=== PATIENT | female | born 1980 | race African-American/Black ===

== ENCOUNTER 2022-05-16 00:37 | Emergency (ER) | payer MEDICAID, MEDICARE ==
[~2022-05-16] VITALS: Ht 167.6 cm; Wt 63.0 kg
[2022-05-16] MEDS ORDERED: METOCLOPRAMIDE HCL 5MG/ml INJ 2ml VIAL IM ONE (03:15)
[2022-05-16] MEDS ORDERED: MORPHINE SULFATE 4 MG/ML SYR/VIAL IM ONE (03:15)
[2022-05-16] MEDS ORDERED: diphenhdrAMINE HCL 50 MG/1 ML VL IM ONE (03:15)
[2022-05-16] MEDS ORDERED: ONDANSETRON ODT 4 MG TAB PO ONE ×2 (03:15→05:30)
[2022-05-16 03:46] LABS: Urine Bacteria NONE SEEN /hpf (None Seen); Urine Blood 3+ /uL (Negative); Urine Mucus FEW (None Seen); Urine Specific Gravity 1.018 (1.001-1.035); Urine WBC 4 /hpf (0 - 5)
[2022-05-16 03:50] LABS: Basophils # (auto) 0.1 10 ^3/uL (0-0.2); Eosinophils # (auto) 0 10 ^3/uL (0-0.8); Eosinophils % (auto) 0.1 % (0.0-7.0); Monocytes # (auto) 0.5 10 ^3/uL (0-1.3); Red Blood Cells 4.72 10^6/uL (4.0-5.20)
[2022-05-16 03:51] LABS: Basophils % (auto) 0.8 % (0.0-2.0); Hematocrit 29.5 % (36.0-46.0); Hemoglobin 9.1 g/dL (12.2-16.2); Mean Corpuscular Hemoglobin 19.2 pg (28.0-32.0); Mean Corpuscular Hgb Conc. 30.7 g/dL (32.0-36.0); Mean Corpuscular Volume 62.4 fL (80.0-100.0); Monocytes % (auto) 3.6 % (0.0-12.0); Neutrophils # (auto) 11.3 10 ^3/uL (1.6-8.6); Neutrophils % (auto) 87.5 % (37.0-80.0); White Blood Cell 12.9 10^3/uL (4.4-10.8)
[2022-05-16 03:55] LABS: Red Cell Distribution Width 20.9 % (11.8-14.3)
[2022-05-16 04:07] LABS: Calcium 8.9 mg/dL (8.5-10.1); Potassium 3.2 mmol/L (3.5-5.1)
[2022-05-16 04:10] LABS: BUN/Creatinine Ratio 16.7; Bilirubin, Total 0.6 mg/dL (0.2-1.0); Total Protein 8.4 g/dL (6.4-8.2)
[2022-05-16] MEDS ORDERED: cefTRIAXone W LIDOCAINE 1 GM IM IM ONE (05:30)
[2022-05-16] MEDS ORDERED: POTASSIUM EFFERVESENT TAB 25 MEQ GT ONE (05:30)
[2022-05-16] MEDS ORDERED: cefTRIAXone SOD 1,000 MG VL IM ONE (06:00)
[2022-05-16] MEDS ORDERED: LIDOCAINE 2%HCL (LOCAL ANESTH.) INJ 10ml MDV IJ ONE (06:00)
[2022-05-16 06:01] VITALS: BP 154/97
[2022-05-16] MEDS ORDERED: METO5TAB67 PO ×2 (07:13)
[2022-05-16] MEDS ORDERED: ONDA-144 PO ×2 (07:13)
[2022-05-16] MEDS ORDERED: CEPH-322 PO ×2 (07:13)
== END 2022-05-16 07:29 | disposition home or self-care (01) ==
LOC: ER 00:37
DX: N39.0 Urinary tract infection, site not specified (principal); R11.2 Nausea with vomiting, unspecified; Z90.49 Acquired absence of other specified parts of digestive tract; Z79.899 Other long term (current) drug therapy; Z88.5 Allergy status to narcotic agent; Z88.8 Allergy status to other drugs, medicaments and biological substances
CPT/HCPCS: 36415; 80053; 81001; 81025; 83690; 85025; 96372; 99284; J0696; J1200; J2270; J2765; Q0162

== ENCOUNTER 2022-05-17 16:22 | Inpatient (IN) | payer MEDICAID ==
[~2022-05-17] VITALS: Ht 167.6 cm; Wt 66.6 kg
[~2022-05-17 16:22] MED LIST: CEPH-322 PO; METO5TAB67 PO; ONDA-144 PO
[2022-05-17] MEDS ORDERED: SODIUM CHLORIDE 0.9% 1,000 ML IV ONE ×3 (17:00→19:00)
[2022-05-17 17:06] LABS: Basophils # (auto) 0.1 10 ^3/uL (0-0.2); Basophils % (auto) 0.7 % (0.0-2.0); Eosinophils # (auto) 0 10 ^3/uL (0-0.8); Monocytes # (auto) 0.5 10 ^3/uL (0-1.3); Neutrophils % (auto) 82.6 % (37.0-80.0)
[2022-05-17 17:08] LABS: Eosinophils % (auto) 0.2 % (0.0-7.0); Hematocrit 34.6 % (36.0-46.0); Hemoglobin 10.8 g/dL (12.2-16.2); Lymphocytes # (auto) 1.5 10 ^3/uL (0.4-5.4); Lymphocytes % (auto) 12.2 % (10.0-50.0); Mean Corpuscular Hemoglobin 19.1 pg (28.0-32.0); Mean Corpuscular Hgb Conc. 31.2 g/dL (32.0-36.0); Mean Corpuscular Volume 61.3 fL (80.0-100.0); Monocytes % (auto) 4.3 % (0.0-12.0); Neutrophils # (auto) 10.4 10 ^3/uL (1.6-8.6); Nucleated Red Blood Cells % 0.1 %; Red Blood Cells 5.64 10^6/uL (4.0-5.20); White Blood Cell 12.6 10^3/uL (4.4-10.8)
[2022-05-17 17:15] LABS: Red Cell Distribution Width 20.5 % (11.8-14.3)
[2022-05-17 17:36] LABS: Albumin 4.2 g/dL (3.4-5.0); BUN/Creatinine Ratio 11.9; Calcium 9.3 mg/dL (8.5-10.1); Potassium 3.5 mmol/L (3.5-5.1)
[2022-05-17 17:39] LABS: Bilirubin, Total 0.9 mg/dL (0.2-1.0); Total Protein 8.6 g/dL (6.4-8.2)
[2022-05-17 18:56] LABS: Urine Bacteria NONE SEEN /hpf (None Seen); Urine Blood 3+ /uL (Negative); Urine Mucus FEW (None Seen); Urine Specific Gravity 1.017 (1.001-1.035); Urine WBC 4 /hpf (0 - 5)
[2022-05-18] MEDS ORDERED: ACETAMINOPHEN 325 MG TAB PO PRN ×2 (00:30→13:30)
[2022-05-18] MEDS ORDERED: D5W/SOD CHL 0.45% 1,000 ML IV SCH (00:30)
[2022-05-18] MEDS ORDERED: cefTRIAXone 1GM/50ML D5W 50 ML IV ONE (02:45)
[2022-05-18] MEDS ORDERED: NITROGLYCERIN 0.4 MG SL TAB SL PRN (03:30)
[2022-05-18] MEDS: ONDANSETRON HCL 4 MG/2 ML VIAL IV PRN ×2 (04:14→14:04)
[2022-05-18] MEDS: IBUPROFEN 600 MG TAB PO PRN ×2 (04:15→19:30)
[2022-05-18] MEDS: hydrALAZINE HCL 20 MG/ML VL IV PRN ×3 (04:15→20:30)
[2022-05-18] MEDS: D5W/SOD CHL 0.45% 1,000 ML IV SCH ×2 (04:44→09:34)
[2022-05-18 08:43] VITALS: BP 128/64
[2022-05-18] MEDS: FAMOTIDINE (10MG/ML) 2ML VL IV SCH ×2 (09:35→21:52)
[2022-05-18 09:44] LABS: Eosinophils # (auto) 0 10 ^3/uL (0-0.8); Eosinophils % (auto) 0.3 % (0.0-7.0); Nucleated Red Blood Cells % 0.1 %
[2022-05-18 09:46] LABS: Basophils # (auto) 0.1 10 ^3/uL (0-0.2); Basophils % (auto) 0.7 % (0.0-2.0); Hematocrit 32.9 % (36.0-46.0); Lymphocytes # (auto) 1.7 10 ^3/uL (0.4-5.4); Mean Corpuscular Hemoglobin 19.1 pg (28.0-32.0); Mean Corpuscular Hgb Conc. 30.5 g/dL (32.0-36.0); Mean Corpuscular Volume 62.7 fL (80.0-100.0); Monocytes # (auto) 0.6 10 ^3/uL (0-1.3); Monocytes % (auto) 4.9 % (0.0-12.0); Neutrophils # (auto) 9.7 10 ^3/uL (1.6-8.6); Neutrophils % (auto) 80.1 % (37.0-80.0); Red Blood Cells 5.25 10^6/uL (4.0-5.20); White Blood Cell 12.2 10^3/uL (4.4-10.8)
[2022-05-18 09:54] VITALS: BP 128/64
[2022-05-18 10:00] LABS: Albumin 3.6 g/dL (3.4-5.0); BUN/Creatinine Ratio 13.4; Bilirubin, Total 0.6 mg/dL (0.2-1.0); Calcium 8.4 mg/dL (8.5-10.1); Potassium 3.3 mmol/L (3.5-5.1)
[2022-05-18] MEDS ORDERED: IOHEXOL 300 MG/ML 100ML BOTTLE IJ ONE (10:33)
[2022-05-18] MEDS ORDERED: MORPHINE SULFATE INJ 2 MG/ml SYRG IV PRN (12:00)
[2022-05-18 12:30] VITALS: BP 160/71
[2022-05-18 17:17] VITALS: BP 155/82
[2022-05-18] MEDS ORDERED: BENAZEPRIL HCL 10 MG TAB PO ONE (19:30)
[2022-05-18] MEDS: cefTRIAXone 1GM/50ML D5W 50 ML IV SCH (21:52)
[2022-05-18] MEDS: diphenhdrAMINE HCL 25 MG CAP PO PRN (21:57)
[2022-05-18 22:00] VITALS: BP 170/89
[2022-05-19 05:00] VITALS: BP 156/85
[2022-05-19 06:33] LABS: Eosinophils # (auto) 0.1 10 ^3/uL (0-0.8); Lymphocytes # (auto) 1.8 10 ^3/uL (0.4-5.4); Mean Corpuscular Volume 61.3 fL (80.0-100.0); Monocytes # (auto) 0.6 10 ^3/uL (0-1.3); White Blood Cell 8.8 10^3/uL (4.4-10.8)
[2022-05-19 06:40] LABS: Basophils # (auto) 0.2 10 ^3/uL (0-0.2); Basophils % (auto) 1.8 % (0.0-2.0); Hematocrit 29.8 % (36.0-46.0); Hemoglobin 9.6 g/dL (12.2-16.2); Lymphocytes % (auto) 20.5 % (10.0-50.0); Mean Corpuscular Hemoglobin 19.7 pg (28.0-32.0); Mean Corpuscular Hgb Conc. 32.2 g/dL (32.0-36.0); Monocytes % (auto) 6.3 % (0.0-12.0); Neutrophils # (auto) 6.2 10 ^3/uL (1.6-8.6); Neutrophils % (auto) 70.4 % (37.0-80.0); Nucleated Red Blood Cells % 0.1 %; Red Blood Cells 4.86 10^6/uL (4.0-5.20); Red Cell Distribution Width 20.2 % (11.8-14.3)
[2022-05-19 06:57] LABS: Albumin 3.3 g/dL (3.4-5.0); BUN/Creatinine Ratio 8.9; Calcium 8.4 mg/dL (8.5-10.1); Potassium 3.1 mmol/L (3.5-5.1)
[2022-05-19 07:04] LABS: Bilirubin, Total 0.8 mg/dL (0.2-1.0); Total Protein 6.7 g/dL (6.4-8.2)
[2022-05-19 08:00] VITALS: BP 163/94
[2022-05-19] MEDS: hydrALAZINE HCL 20 MG/ML VL IV PRN ×2 (09:14→17:54)
[2022-05-19] MEDS: ONDANSETRON HCL 4 MG/2 ML VIAL IV PRN ×2 (09:46→13:47)
[2022-05-19] MEDS: POTASSIUM EFFERVESENT TAB 25 MEQ PO SCH ×2 (09:46→11:21)
[2022-05-19] MEDS: FAMOTIDINE (10MG/ML) 2ML VL IV SCH ×2 (09:46→21:32)
[2022-05-19 12:00] VITALS: BP 144/93
[2022-05-19] MEDS ORDERED: BISACODYL 10 MG RECT SUPP PR ONE (13:30)
[2022-05-19] MEDS ORDERED: POLYETHYLENE GLYCOL 17 GM PWDR PO PRN (13:30)
[2022-05-19 16:00] VITALS: BP 165/93
[2022-05-19] MEDS: diphenhdrAMINE HCL 25 MG CAP PO PRN ×2 (17:53→21:31)
[2022-05-19 20:00] VITALS: BP 122/77
[2022-05-19] MEDS: IBUPROFEN 600 MG TAB PO PRN (21:31)
[2022-05-19] MEDS: D5W/SOD CHL 0.45% 1,000 ML IV SCH (21:32)
[2022-05-19] MEDS: cefTRIAXone 1GM/50ML D5W 50 ML IV SCH (21:32)
[2022-05-19] MEDS: DOCUSATE SOD 100 MG CAP PO SCH (21:33)
[2022-05-19 21:47] VITALS: BP 122/77
[2022-05-20 05:05] VITALS: BP 101/52
[2022-05-20 06:10] LABS: INR 1.07 (0.9-1.15); Partial Thromboplastin Time 23.9 sec (24.6-33.4)
[2022-05-20 08:00] VITALS: BP 116/70
[2022-05-20 09:00] VITALS: BP 116/70
[2022-05-20] MEDS: DOCUSATE SOD 100 MG CAP PO SCH (10:00)
[2022-05-20] MEDS: FAMOTIDINE (10MG/ML) 2ML VL IV SCH (10:35)
[2022-05-20] MEDS ORDERED: diphenhdrAMINE HCL 50 MG/1 ML VL ONE (11:54)
[2022-05-20] MEDS ORDERED: LIDOCAINE VISCOUS 2% 15ML UD ONE (11:54)
[2022-05-20] MEDS ORDERED: SODIUM CHLORIDE LOCK 10 ML ONE (11:54)
[2022-05-20] MEDS: MIDAZOLAM HCL 5 MG/ML-1ML VIAL ONE ×3 (12:05→12:11)
[2022-05-20] MEDS: fentaNYL CITRATE 100 MCG/2 ML VL ONE ×3 (12:05→12:11)
[2022-05-20] MEDS: ONDANSETRON HCL 4 MG/2 ML VIAL IV PRN (12:39)
[2022-05-20] MEDS: D5W/SOD CHL 0.45% 1,000 ML IV SCH (14:53)
[2022-05-20] MEDS ORDERED: CEPH500C PO ×2 (16:08)
[2022-05-20] MEDS ORDERED: PANT40T PO ×2 (16:08)
[2022-05-20] MEDS ORDERED: ONDA-144 PO ×2 (16:08)
[2022-05-20] MEDS ORDERED: DOCU100C10 PO ×2 (16:08)
[2022-05-20] MEDS ORDERED: SUCR1TAB22 PO ×2 (16:08)
[2022-05-20 16:47] VITALS: BP 121/75
[2022-05-20 17:23] VITALS: BP 121/75
== END 2022-05-20 18:01 | disposition home or self-care (01) | DRG 463 ==
LOC: ER 16:24 → OVERFLOW 05-18 03:18 → EAST 05-18 08:07
PROVIDERS: ADMIT Nurse Practitioner Family; ATTEND Internal Medicine
PROC: 0DB68ZX Excision of Stomach, Via Natural or Artificial Opening Endoscopic, Diagnostic (ICD-10-PCS; 2022-05-20)
PROC: 0DB98ZX Excision of Duodenum, Via Natural or Artificial Opening Endoscopic, Diagnostic (ICD-10-PCS; principal; 2022-05-20 12:00)
DX: N10 Acute pyelonephritis (principal); K22.10 Ulcer of esophagus without bleeding; K80.20 Calculus of gallbladder without cholecystitis without obstruction; I10 Essential (primary) hypertension; K21.00 Gastro-esophageal reflux disease with esophagitis, without bleeding; K59.00 Constipation, unspecified; R31.9 Hematuria, unspecified; K44.9 Diaphragmatic hernia without obstruction or gangrene; K52.9 Noninfective gastroenteritis and colitis, unspecified; K29.90 Gastroduodenitis, unspecified, without bleeding; Z90.49 Acquired absence of other specified parts of digestive tract; Z88.5 Allergy status to narcotic agent; Z88.8 Allergy status to other drugs, medicaments and biological substances
CPT/HCPCS: 36415; 71045; 74176; 74177; 74181; 76775; 80053; 81001; 84702; 85025; 85610; 85730; 86677; 86850; 86900; 86901; 87086; 87426; 96361; 96365; G0378; J0696; J2250; J2405; J3490